=== PATIENT | male | born 1960 | race Caucasian/White ===

== ENCOUNTER 2020-11-26 21:48 | Emergency (ER) | payer MEDICAID ==
--- NOTE | 2020-11-26 22:24 | EDM.PDOC ---
ED HPI GENERAL MEDICAL PROBLEM - General Chief Complaint: Eye Problems Stated Complaint: Vision loss Time Seen by Provider: 11/26/20 22:00 Source of Information: Reports: Patient, RN Notes Reviewed History Limitations: Reports: No Limitations - History of Present Illness INITIAL COMMENTS - FREE TEXT/NARRATIVE: This patient presents to the emergency department for evaluation of visual changes. He states that this afternoon while fishing he noticed that he was having trouble seeing a line to tie a knot. Approximately 5:30 PM he did notice a significant change in his vision and lost vision in the lower half of his visual field in his right eye. He had some peripheral vision at the top but does not have a vision at the bottom of the peripheral field either. He states he has some floaters in that eye but adds that he always has these and they are unchanged. He denies flashes of light. He denies any trauma. He denies headache, falls, other symptoms or concerns. Onset: Today, Sudden Onset Date: 11/26/20 Onset Time: 17:30 - Related Data Allergies Allergy/AdvReac Type Severity Reaction Status Date / Time No Known Allergies Allergy Verified 11/26/20 22:19 Home Meds: Home Meds NK [No Known Home Meds] 11/26/20 [History] ED ROS GENERAL - Review of Systems Review Of Systems: Comprehensive ROS is negative, except as noted in HPI. ED EXAM GENERAL W FULL EYE - Physical Exam Exam: See Below Exam Limited By: No Limitations General Appearance: Alert, No Apparent Distress Eye Exam: Right Eye: Vision Changes, Bilateral Eye: Normal Inspection, PERRL Course - Orders/Labs/Meds Orders: Active Orders 24 hr Category Date Time Status Head wo Cont [CT] Stat Exams 11/26/20 22:03 Taken - Re-Assessments/Exams Free Text/Narrative Re-Assessment/Exam: 11/26/20 22:57 This patient presents to the ER with the change in visual dao. I did contact Dr. Godinez, an maritime engineer at [facility] who explained that the differential diagnoses of a problem such as this is lengthy and could be something like an ocular migraine, and optic nerve problem, or some bleeding. Given his level of comfort and normal physical exam he recommended that the patient could go home and sleep tonight and decide in the morning whether he should be seen by ophthalmology or not. Dr. C states that if there is no change to his visual field in the morning (it remains consistently half dark) he does not need to be seen on an emergent basis. He recommends that if there is any difference to this in the morning he be seen for a dilated eye exam and recommended he present to the [facility] emergency department. I did review these recommendations with the patient who opted for discharge and to follow-up in the morning as needed. The patient was given this information in writing and his questions were answered. Given his normal physical exam and his general level of comfort I do feel comfortable discharging him at this time. He also had a head CT which was normal. Departure - Departure Time of Disposition: 22:45 Disposition: Home, Self-Care 01 Condition: Good Clinical Impression: Visual field cut - Discharge Information *PRESCRIPTION DRUG MONITORING PROGRAM REVIEWED*: Not Applicable *COPY OF PRESCRIPTION DRUG MONITORING REPORT IN PATIENT AMEE: Not Applicable Forms: ED Department Discharge Additional Instructions: If there is any change in this in the morning, you should be seen by an maritime engineer. The closest one is at [facility]; if you feel you need to be seen go to the Emergency Department there. I spoke with Dr. Godinez from [facility] this evening. - My Orders Last 24 Hours: My Active Orders 11/26/20 22:03 Head wo Cont [CT] Stat - Assessment/Plan Last 24 Hours: My Active Orders 11/26/20 22:03 Head wo Cont [CT] Stat
--- NOTE | 2020-11-27 11:44 | CT ---
CLINICAL DATA: Trauma. UNENHANCED BRAIN CT, 2020: Multislice axial acquisition without IV contrast was performed. No priors. No masses or mass effect. No intracranial hemorrhage. No evidence of acute or subacute infarct. No osseous abnormalities. IMPRESSION: No acute intracranial abnormalities. Job: [id number] MTDD
== END 2020-11-26 22:49 | disposition home or self-care (01) ==
LOC: LB.ED 21:48
DX: H53.8 Other visual disturbances (principal)
CPT/HCPCS: 70450; 99284-25